=== PATIENT | female | born 1995 | race American Indian/Alaskan Native ===

== ENCOUNTER 2017-07-22 01:03 | Emergency (ER) | payer MEDICAID ==
[2017-07-22 01:20] VITALS: BMI 20.1
--- NOTE | 2017-07-22 01:33 | ED PDOC ---
Arrival/HPI - General Chief Complaint: Abdominal Pain Time Seen by Provider: 07/22/17 01:11 - History of Present Illness Narrative History of Present Illness (Text): 07/22/17 01:28 Patient is a 22 year old female who presents to the Emergency department complaining of intermittent lower abdominal pain which started yesterday. Patient denies any recent traveling and doesn't believe that she has eaten anything suspicious. She states her last normal menstrual period occurred approximately 2.5 months ago, and admits to the possibility of being . Patient also reports experiencing diarrhea and lightheadedness. Patient denies any vomiting, nausea, dyspnea, chest pain, or any other symptoms at this time. Time/Duration: 24 hours (Yesterday (07/20/17)) Symptom Course: Intermittent Context: Home Past Medical History - Provider Review Nursing Documentation Reviewed: Yes - Infectious Disease Hx of Infectious Diseases: None - Cardiac Hx Cardiac Disorders: No - Pulmonary Hx Respiratory Disorders: Yes Hx Asthma: Yes - Neurological Hx Neurological Disorder: No - HEENT Hx HEENT Disorder: No - Renal Hx Renal Disorder: No - Endocrine/Metabolic Hx Endocrine Disorders: No - Hematological/Oncological Hx Blood Disorders: No - Integumentary Hx Dermatological Disorder: No - Musculoskeletal/Rheumatological Hx Musculoskeletal Disorders: No - Gastrointestinal Hx Gastrointestinal Disorders: No - Genitourinary/Gynecological Hx Genitourinary Disorders: No - Psychiatric Hx Psychophysiologic Disorder: No Hx Substance Use: Yes (Marijuana) - Anesthesia Hx Anesthesia: No Family/Social History - Physician Review Nursing Documentation Reviewed: Yes Family/Social History: No Known Family HX Smoking Status: Current Some Days Smoker Hx Alcohol Use: Yes Frequency of alcohol use: Socially Hx Substance Use: Yes (Marijuana) Allergies/Home Meds Allergies/Adverse Reactions: Allergies banana Allergy (Verified 07/22/17 01:29) SWELLING ibuprofen Allergy (Verified 07/22/17 01:29) SWELLING Home Medications: Home Meds Medication Instructions Recorded Confirmed No Known Home Med 07/22/17 07/22/17 Review of Systems - Physician Review All systems were reviewed & negative as marked: Yes - Review of Systems Respiratory: absent: SOB Cardiovascular: absent: Chest Pain Gastrointestinal: Abdominal Pain, Diarrhea. absent: Nausea, Vomiting Neurological: Dizziness (lightheadedness) Physical Exam Vital Signs Reviewed: Yes Vital Signs Temp Pulse Resp BP Pulse Ox 07/22/17 04:41 97.2 F L 89 17 110/82 100 07/22/17 01:19 97.9 F 98 H 18 140/63 98 Temperature: Afebrile Blood Pressure: Normal Pulse: Regular Respiratory Rate: Normal Appearance: Positive for: Well-Appearing Mental Status: Positive for: Alert and Oriented X 3 - Systems Exam Head: Present: Atraumatic, Normocephalic Pupils: Present: PERRL Extroacular Muscles: Present: EOMI Conjunctiva: Present: Normal Mouth: Present: Moist Mucous Membranes Neck: Present: Normal Range of Motion Respiratory/Chest: Present: Clear to Auscultation, Good Air Exchange. No: Respiratory Distress, Accessory Muscle Use Cardiovascular: Present: Regular Rate and Rhythm, Normal S1, S2. No: Murmurs Abdomen: No: Tenderness, Distention, Peritoneal Signs Back: Present: Normal Inspection Upper Extremity: Present: Normal Inspection. No: Cyanosis, Edema Lower Extremity: Present: Normal Inspection. No: Edema Neurological: Present: GCS=15, CN II-XII Intact, Speech Normal Skin: Present: Warm, Dry, Normal Color. No: Rashes Psychiatric: Present: Alert, Oriented x 3, Normal Insight, Normal Concentration Medical Decision Making ED Course and Treatment: 07/22/17 01:35 Impression: Patient is a 22 year old female with lower abdominal pain and associated diarrhea. Differential Diagnosis included but are not limited to: Gastroenteritis vs. Gastritis vs. Viral syndrome Plan: --lab works --urinalysis --Morphine IVP --IV fluids --Zofran IVP -- Reassess and disposition Progress Notes: 07/22/17 01:41 test negative. 07/22/17 04:03 Reevaluation: On reevaluation the patient feels better and is in no acute distress. I have discussed the results and plan with the patient, who expresses understanding. Patient given the opportunity to ask question, all questions were answered and there is agreement with the plan to discharge the patient home. Patient is stable for discharge. Patient was instructed to follow up with physician/clinic in 1-2 days or return if symptoms persist/worsen or new concerning symptoms arise. - Lab Interpretations Lab Results: 07/22/17 02:00 07/22/17 02:00 Lab Results 07/22/17 02:00: WBC 5.0, RBC 4.63, Hgb 14.1, Hct 41.0, MCV 88.6, MCH 30.5, MCHC 34.4, RDW 12.3, Plt Count 251, MPV 8.9 07/22/17 02:00: Sodium 145, Potassium 3.6, Chloride 105, Carbon Dioxide 28, Anion Gap 16, BUN 20, Creatinine 0.9, Est GFR ( Amer) > 60, Est GFR (Non- Af Amer) > 60, Random Glucose 100, Calcium 9.8, Total Bilirubin 0.5, AST 30, ALT 29, Alkaline Phosphatase 49, Total Protein 7.8, Albumin 4.4, Globulin 3.3, Albumin/Globulin Ratio 1.3, Lipase 103 07/22/17 01:53: Urine Color Yellow, Urine Appearance Clear, Urine pH 6.0, Ur Specific [place] 1.025, Urine Protein Trace H, Urine Glucose (UA) Negative, Urine Ketones Trace H, Urine Blood Negative, Urine Nitrate Negative, Urine Bilirubin Negative, Urine Urobilinogen 1.0 H, Ur Leukocyte Esterase Negative, Urine RBC 0 - 2, Urine WBC 0 - 2, Ur Epithelial Cells 1 - 3 I have reviewed the lab results: Yes - Medication Orders Current Medication Orders: Discontinued Medications Sodium Chloride (Sodium Chloride 0.9%) 1,000 mls @ 999 mls/hr IV .Q1H1M STA Stop: 07/22/17 02:41 Last Admin: 07/22/17 02:09 Dose: 999 mls/hr eMAR Start Stop Document 07/22/17 02:09 LA (Rec: 07/22/17 02:09 LA [id number]) Intravenous Solution Start Date 07/22/17 Start Time 02:09 End Date 07/22/17 End time 03:10 Total Infusion Time 61 Morphine Sulfate (Morphine) 2 mg IVP STAT STA Stop: 07/22/17 01:42 Last Admin: 07/22/17 02:08 Dose: 2 mg MAR Pain Assessment Document 07/22/17 02:08 LA (Rec: 07/22/17 02:08 LA [id number]) Pain Reassessment Is this a pain reassessment? No Sleep Is patient sleeping during reassessment? No Presence of Pain Presence of Pain Yes Pain Scale Used Pain Scale Used Numeric Location Pain Location Body Site Abdomen Description Intensity of Pain at present 8 IVP Administration Document 07/22/17 02:08 LA (Rec: 07/22/17 02:08 LA [id number]) Charges for Administration # of IVP Administrations 1 Ondansetron HCl (Zofran Inj) 4 mg IVP ONCE ONE Stop: 07/22/17 01:42 Last Admin: 07/22/17 02:09 Dose: 4 mg IVP Administration Document 07/22/17 02:09 LA (Rec: 07/22/17 02:09 LA [id number]) Charges for Administration # of IVP Administrations 1 - Scribe Statement Angel Banks Provider Scribe Attestation: All medical record entries made by the Scribe were at my direction and personally dictated by me. I have reviewed the chart and agree that the record accurately reflects my personal performance of the history, physical exam, medical decision making, and the department course for this patient. I have also personally directed, reviewed, and agree with the discharge instructions and disposition Disposition/Present on Arrival - Present on Arrival Any Indicators Present on Arrival: No History of DVT/PE: No History of Uncontrolled Diabetes: No Urinary Catheter: No History of Decub. Ulcer: No History Surgical Site Infection Following: None - Disposition Have Diagnosis and Disposition been Completed?: Yes Diagnosis: Gastroenteritis Disposition: HOME/ ROUTINE Disposition Time: 04:04 Patient Plan: Discharge Condition: GOOD Discharge Instructions (ExitCare): Gastroenteritis (ED) Additional Instructions: Avoid fatty /greasy foods/drink plenty of liquids/may drink Gatorade/bland diet next few days/follow up with your doctor this week Forms: [facility] ([place] Islander), SCHOOL NOTE, WORK NOTE
[2017-07-22] MEDS ORDERED: Sodium Chloride 0.9% 1,000 ML IV STA (01:41)
[2017-07-22] MEDS ORDERED: Morphine 4 mg/ml ISec IVP STA (01:41)
[2017-07-22 02:16] LABS: URINE BILIRUBIN NEGATIVE (NEGATIVE); URINE BLOOD NEGATIVE (NEGATIVE); URINE GLUCOSE (UA) NEGATIVE (NEGATIVE); URINE LEUKOCYTE ESTERASE NEGATIVE Leu/uL (NEGATIVE); URINE PROTEIN TRACE mg/dL (<30 mg/dL)
[2017-07-22 02:16] LABS: HEMOGLOBIN 14.1 g/dL (12.0-16.0); MEAN CELL VOLUME 88.6 fl (80.0-105.0); MEAN CORPUSCULAR HEMOGLOBIN 30.5 pg (25.0-35.0); MEAN CORPUSCULAR HGB CONC 34.4 g/dl (31.0-37.0); MEAN PLATELET VOLUME 8.9 fl (7.0-11.0); RBC 4.63 10^6/uL (3.5-6.1); RED CELL DISTRIBUTION WIDTH 12.3 % (11.5-14.5)
[2017-07-22 02:22] LABS: URINE APPEARANCE CLEAR (CLEAR); URINE COLOR YELLOW (YELLOW)
[2017-07-22 02:27] LABS: URINE RBC 0 - 2 /hpf (0-2); URINE WBC 0 - 2 /hpf (0-6)
[2017-07-22 02:29] LABS: ALB/GLOB RATIO 1.3 (1.1-1.8); ALBUMIN 4.4 g/dL (3.0-4.8); ALT/SGPT 29 U/L (7-56); AST/SGOT 30 U/L (14-36); BLOOD UREA NITROGEN 20 mg/dL (7-21); CALCIUM 9.8 mg/dL (8.4-10.5); GFR AFRICAN-AMERICAN > 60; GFR NON-AFRICAN AMERICAN > 60; LIPASE 103 U/L (23-300)
[2017-07-22 04:43] VITALS: BP 110/82; PULSE 89; RESP 17; TEMP 97.2; O2SAT 100
== END 2017-07-22 04:41 | disposition home or self-care (01) ==
LOC: MERGE 01:03 → ED 01:03
DX: K52.9 Noninfective gastroenteritis and colitis, unspecified (principal)
CPT/HCPCS: 80053; 81001; 83690; 85027; 96361; 96374; 96375; 99284; J2270; J2405; J7040

== ENCOUNTER 2017-10-25 12:52 | Emergency (ER) | payer MEDICAID ==
[2017-10-25 13:06] VITALS: BMI 21.0
[2017-10-25 13:28] LABS: URINE BILIRUBIN NEGATIVE (NEGATIVE); URINE BLOOD NEGATIVE (NEGATIVE); URINE GLUCOSE (UA) NEGATIVE (NEGATIVE); URINE LEUKOCYTE ESTERASE TRACE Leu/uL (NEGATIVE); URINE PROTEIN TRACE mg/dL (<30 mg/dL)
[2017-10-25 13:31] LABS: URINE APPEARANCE CLEAR (CLEAR); URINE COLOR YELLOW (YELLOW)
--- NOTE | 2017-10-25 13:36 | ED PDOC ---
Arrival/HPI - General Chief Complaint: Female Genitourinary Time Seen by Provider: 10/25/17 12:55 Historian: Patient - History of Present Illness Narrative History of Present Illness (Text): 10/25/17 13:23 22 year old female, with past medical history of asthma (no previous intubation , x1 admission) and known drug allergy to ibuprofen, presents to the Emergency Department accompanied by complaining of intermittent left lower abdominal pain associated with dysuria since one week. Patient informs non- radiating cramping/sharp pain consistent with past history of ovarian cyst and similar to menstrual cycle. As per patient, increased urinary frequency is present with foul urine odor. Patient denies and states her last normal menstrual period was on 09/11/17. Patient informs mild shortness of breath but denies any fever, chills, nausea, vomiting, diarrhea, constipation, hematuria, vaginal discharge, chest pain, or any other complaints. No vaginal d/ c. No STD hx. LMP was 10/11, normal. 10/25/17 17:13 Time/Duration: 1 week Symptom Onset: Gradual Symptom Course: Intermittent Quality: Cramping Activities at Onset: Light Context: Home Past Medical History - Provider Review Nursing Documentation Reviewed: Yes - Travel History Have you recently traveled outside [place] w/in the past 3 mons?: No - Infectious Disease Hx of Infectious Diseases: None - Reproductive Menopause: No - Cardiac Hx Cardiac Disorders: No - Pulmonary Hx Respiratory Disorders: Yes Hx Asthma: Yes - Neurological Hx Neurological Disorder: No - HEENT Hx HEENT Disorder: No - Renal Hx Renal Disorder: No - Endocrine/Metabolic Hx Endocrine Disorders: No - Hematological/Oncological Hx Blood Disorders: No - Integumentary Hx Dermatological Disorder: No - Musculoskeletal/Rheumatological Hx Musculoskeletal Disorders: No - Gastrointestinal Hx Gastrointestinal Disorders: No - Genitourinary/Gynecological Hx Genitourinary Disorders: No - Psychiatric Hx Psychophysiologic Disorder: No Hx Substance Use: Yes (Marijuana) - Anesthesia Hx Anesthesia: No Family/Social History - Physician Review Nursing Documentation Reviewed: Yes Family/Social History: No Known Family HX Smoking Status: Current Some Days Smoker Hx Alcohol Use: Yes (socially) Hx Substance Use: Yes (Marijuana) Allergies/Home Meds Allergies/Adverse Reactions: Allergies banana Allergy (Verified 10/25/17 13:00) SWELLING ibuprofen Allergy (Verified 10/25/17 13:00) SWELLING Review of Systems - Physician Review All systems were reviewed & negative as marked: Yes - Review of Systems Constitutional: Normal. absent: Fevers Eyes: Normal Respiratory: SOB Cardiovascular: absent: Chest Pain Gastrointestinal: Abdominal Pain. absent: Constipation, Diarrhea, Nausea, Vomiting Genitourinary Female: Dysuria, Frequency. absent: Hematuria, Vaginal Discharge Skin: Normal Neurological: Normal Psychiatric: Normal Physical Exam Vital Signs Reviewed: Yes Vital Signs Temp Pulse Resp BP Pulse Ox 10/25/17 15:42 98 F 76 18 110/75 98 10/25/17 15:00 98.4 F 72 18 107/61 98 10/25/17 13:02 98.5 F Temperature: Afebrile Blood Pressure: Normal Pulse: Regular Respiratory Rate: Normal Appearance: Positive for: Well-Appearing, Non-Toxic, Comfortable Pain Distress: None Mental Status: Positive for: Alert and Oriented X 3 - Systems Exam Head: Present: Atraumatic, Normocephalic Pupils: Present: PERRL Extroacular Muscles: Present: EOMI Conjunctiva: Present: Normal Respiratory/Chest: Present: Clear to Auscultation, Good Air Exchange. No: Respiratory Distress, Accessory Muscle Use Cardiovascular: Present: Regular Rate and Rhythm, Normal S1, S2. No: Murmurs Abdomen: Present: Tenderness (mild left lower quadrant tenderness), Normal Bowel Sounds. No: Distention, Peritoneal Signs, Rebound, Guarding Back: Present: Normal Inspection. No: CVA Tenderness Upper Extremity: Present: Normal Inspection. No: Cyanosis, Edema Lower Extremity: Present: Normal Inspection. No: Edema Neurological: Present: GCS=15, CN II-XII Intact, Speech Normal Skin: Present: Warm, Dry, Normal Color. No: Rashes Psychiatric: Present: Alert, Oriented x 3, Normal Insight, Normal Concentration Medical Decision Making ED Course and Treatment: 10/25/17 13:39 Impression: 22 year old female presents to the Emergency Department for left lower abdominal pain with dysuria. She denies any vaginal d/c, hx of STDS, has sex w/ her w/ condoms. No rashes. She notes that she has had ovarian cysts in the past, and that the pain doesnt really feel like it with the dysuria. She denies any fever, chills or night sweats. Given dysuria, w/ out sexual RF hx- likely UTI. Non septic vitals. Differential Diagnosis included but are not limited to: Ovarian Cyst vs. UTI Plan: -- Tylenol -- Urine Culture -- Urinalysis -- Transvaginal US -- Reassess and disposition Prior Visits: Notes and results from previous visits were reviewed. Progress Notes: 10/25/17 13:39 On physical exam, patient is resting comfortably in bed in no acute distress. Patient currently informs mild abdominal pain associated with mild shortness of breath. LS are clear. No hx of asthma intubation. Transvaginal US will be performed to rule out ovarian cyst. 10/25/17 14:36 + UTI 5-10 wbc, dysuria. Will likely rx home w/ nitrofurantoin Pending US. 10/25/17 15:29 Upon reassessment, patient states improved symptoms with no new complaints. Preliminary report of US as read orally by graduate intern shows less ~2 cm left ovarian cyst. Urinalysis shows UTI. No SOB. No wheezes on exam. - Lab Interpretations Lab Results: Lab Results 10/25/17 13:00: Urine Color Yellow, Urine Appearance Clear, Urine pH 6.0, Ur Specific [place] 1.025, Urine Protein Trace H, Urine Glucose (UA) Negative, Urine Ketones Negative, Urine Blood Negative, Urine Nitrate Negative, Urine Bilirubin Negative, Urine Urobilinogen 1.0 H, Ur Leukocyte Esterase Trace H, Urine RBC 0 - 2, Urine WBC 5 - 10, Ur Epithelial Cells 1 - 3, Urine Bacteria Neg , Urine HCG, Qual Negative - RAD Interpretation Radiology Orders: 10/25/17 13:20 TRANSVAGINAL [US] Stat - Medication Orders Current Medication Orders: Discontinued Medications Acetaminophen (Tylenol 325mg Tab) 325 mg PO STAT STA Stop: 10/25/17 13:23 Last Admin: 10/25/17 13:26 Dose: 325 mg MAR Pain/Vitals Document 10/25/17 13:26 SRE (Rec: 10/25/17 13:27 SRE [id number]) Pain Reassessment Is This A Pain ReAssessment? Yes Sleep Is patient sleeping during reassessment? No Presence of Pain Presence of Pain Yes Pain Scale Used Pain Scale Used Numeric Location Pain Location Body Site Abdomen Description Intermittent Pressure Scale Used Numeric - Scribe Statement The provider has reviewed the documentation as recorded by the Scribe Maryann Alexander. All medical record entries made by the Ana were at my direction and personally dictated by me. I have reviewed the chart and agree that the record accurately reflects my personal performance of the history, physical exam, medical decision making, and the department course for this patient. I have also personally directed, reviewed, and agree with the discharge instructions and disposition. Disposition/Present on Arrival - Present on Arrival Any Indicators Present on Arrival: No History of DVT/PE: No History of Uncontrolled Diabetes: No Urinary Catheter: No History of Decub. Ulcer: No History Surgical Site Infection Following: None - Disposition Have Diagnosis and Disposition been Completed?: Yes Diagnosis: UTI (urinary tract infection) Disposition: HOME/ ROUTINE Disposition Time: 15:29 Condition: GOOD Discharge Instructions (ExitCare): Urinary Tract Infections in Adults Additional Instructions: JASMIN RUIZ, thank you for letting us take care of you today. Your provider was Jean-Pierre Florentino and you were treated for STOMACH PAIN. The emergency medical care you received today was directed at your acute symptoms. If you were prescribed any medication, please fill it and take as directed. It may take several days for your symptoms to resolve. Return to the Emergency Department if your symptoms worsen, do not improve, or if you have any other problems. Please contact your doctor or call one of the physicians/clinics you have been referred to that are listed on the Patient Visit Information form that is included in your discharge packet. Bring any paperwork you were given at discharge with you along with any medications you are taking to your follow up visit. Our treatment cannot replace ongoing medical care by a primary care provider outside of the emergency department. Thank you for allowing the [facility] team to be part of your care today. If you had an X-Ray or CT scan: A Radiologist will review the ED reading if any change in treatment is needed we will contact you. If you had a blood, urine, or wound culture: It will take several days for the results, if any change in treatment is needed we will contact you. If you had an STI test: It will take 48 hours for the results. Please call after 1 week if you have not heard back. Prescriptions: Nitrofurantoin Monohyd/M-Cryst [Nitrofurantoin Telfair-Mcr 100 mg] 100 mg PO BID 5 Days #10 capsule Referrals: Chelsea Marte MD [Staff Provider] - Follow up with primary Forms: [employer] (Thai)
[2017-10-25 13:39] LABS: HCG,QUALITATIVE URINE NEGATIVE (NEGATIVE)
[2017-10-25 13:42] LABS: URINE RBC 0 - 2 /hpf (0-2)
[2017-10-25 13:43] LABS: URINE BACTERIA NEG (NEG)
[2017-10-25 15:42] VITALS: RESP 18; O2SAT 98
[2017-10-25 15:43] VITALS: BP 110/75; PULSE 76; TEMP 98
--- NOTE | 2017-10-25 15:48 | US ---
Date of service: 10/25/2017 HISTORY: hx of cyst, now p/w cyst like pain COMPARISON: None available. TECHNIQUE: Transabdominal/transvaginal sonographic evaluation of pelvis performed. Measures approximately 8.5 x 4.1 x 5.0 FINDINGS: UTERUS: Uterus is anteverted measuring approximately 8.5 x 4.1 x 4.5 cm. Normal in size and appearance. No fibroid or other mass lesion seen. ENDOMETRIUM: Measures 4.7 mm in diameter. Unremarkable. CERVIX: No cervical abnormality identified. Cervix measures approximately 3.1 cm RIGHT OVARY: Measures 1.9 x 1.5 x 1.6 cm. No solid mass. Normal flow. LEFT OVARY: Measures 2.4 x 1.9 x 2.1 cm. No solid mass. Normal flow. There is a due to small approximately 4.2 x 2.4 mm the left ovarian calcification. There is also small cyst measures approximately 1.04 x 0.83 x 1.04 cm FREE FLUID: Free fluid is present within the pelvis OTHER FINDINGS: None. IMPRESSION: Small calcification and small cyst left ovary as above. Small amount free fluid present in the pelvis. The
== END 2017-10-25 15:42 | disposition home or self-care (01) ==
LOC: ED 12:52
DX: N39.0 Urinary tract infection, site not specified (principal)